=== PATIENT | female | born 2000 | race Two or more races ===

== ENCOUNTER 2025-06-15 09:38 | Inpatient (IN) | payer MEDICAID, OTHER ==
[~2025-06-15] VITALS: Ht 154.9 cm; Wt 77.5 kg
--- NOTE | 2025-06-15 10:33 | ED.PDOC ---
History of Present Illness HPI Comments This is a 24 year old female presenting to the ED with chief complaint of G-Tube problems. Patient reports that she had a g-tube placed in [place] 2 months ago during a medically-induced coma she was put in due to asthma complications. Patient relays that she is now experiencing abdominal pain with associated itchiness to the g-tube site, nausea, and vomiting for the past few days. Patient states she can eat normally at this time and she was advised by [place] doctors to come into the ED if she starts to have complications for possible removal. Patient denies any diarrhea, drainage, bleeding, or fever. Chief Complaint: Tube Replacement Time Seen by MD: :24 Reviewed Notes: Nurses Notes, Medications, Allergies Allergies: Coded Allergies: Azithromycin (Verified Allergy, Unknown, 06/15/25) Information Source: Patient Mode of Arrival: Ambulatory Severity: Mild Timing: Days Duration: Since onset Prehospital treatment: None Past Medical History PAST MEDICAL HISTORY: Asthma Surgical History (Other): G-Tube FIELD SERVICE SPECIALIST History: No Pertinent FIELD SERVICE SPECIALIST History Family History Family History: Reviewed,noncontributory to illness Social History Smoker: Non-Smoker Alcohol: Denies ETOH Use Drugs: Denies Drug Use Lives In: Home Constitutional: denies: chills, diaphoresis, fatigue, fever, malaise, sweats, weakness, others EENTM: denies: blurred vision, double vision, ear bleeding, ear discharge, ear drainage, ear pain, ear ringing, eye pain, eye redness, hearing loss, mouth pain, mouth swelling, nasal discharge, nose bleeding, nose congestion, nose pain, photophobia, tearing, throat pain, throat swelling, voice changes, others Respiratory: denies: cough, hemoptysis, orthopnea, SOB at rest, shortness of breath, SOB with excertion, stridor, wheezing, others Cardiovascular: denies: chest pain, dizzy spells, diaphoresis, Dyspnea on exertion, edema, irregular heart beat, left arm pain, lightheadedness, palpitations, PND, syncope, others Gastrointestinal: reports: abdominal pain, nausea, vomiting; denies: abdomen distended, blood streaked bowels, constipated, diarrhea, dysphagia, difficulty swallowing, hematemesis, melena, poor appetite, poor fluid intake, rectal bleeding, rectal pain, others Genitourinary: denies: abnormal vagina bleeding, burning, dyspareunia, dysuria, flank pain, frequency, hematuria, incontinence, pain, , vagina dischar ge, urgency, others Neurological: denies: dizziness, fainting, headache, left sided numbness, left sided weakness, numbness, paresthesia, pre-existing deficit, right sided numbness, right sided weakness, seizure, speech problems, tingling, tremors, weakness, others Musculoskeletal: denies: back pain, gout, joint pain, joint swelling, muscle pain, muscle stiffness, neck pain, others Integumetry: denies: bruises, change in color, change in hair/nails, dryness, laceration, lesions, lumps, rash, wounds, others Allergic/Immunocompromised: denies: Difficulty Healing, Frequent Infections, Hives, Itching, others Hematologic/Lymphatic: denies: anemia, blood clots, easy bleeding, easy bruising, swollen glands, others Endocrine: denies: excessive hunger, excessive sweating, excessive thirst, excessive urination, flushing, intolerance to cold, intolerance to heat, unexplained weight gain, unexplained weight loss, others Psychiatric: denies: anxiety, bipolar disorder, depression, hopeless, panic disorder, schizophrenia, sleepless, suicidal, others All Other Systems: Reviewed and Negative Physical Exam General Appearance: No Apparent Distress, Normal HEENT: Normal ENT Inspection, Pharynx Normal, TMs Normal Neck: Full Range of Motion, Non-Tender, Normal, Normal Inspection Respiratory: Chest Non-Tender, Lungs Clear, No Accessory Muscle Use, No Respiratory Distress, Normal Breath Sounds Cardiovascular: No Edema, No JVD, No Murmur, No Gallop, Normal Peripheral Pulses, Regular Rate/Rhythm Breast Exam: Deferred Gastrointestinal: No Organomegaly, Non Tender, No Pulsatile Mass, Normal Bowel Sounds, Soft, Other (G-tube in place) Genitalia: Deferred Pelvic: Deferred Rectal: Deferred Extremities: No calf tenderness, Normal capillary refill, Normal inspection, Normal range of motion, Non-tender, No pedal edema Musculoskeletal : Apperance: Normal Neurologic: Alert, call center professional II-XII nml as Tested, No Motor Deficits, Normal Affect, Normal Mood, No Sensory Deficits Cerebellar Function: Normal Reflexes: Normal Skin: Dry, Normal Color, Warm Lymphatic: No Adenopathy Was a procedure done? Was a procedure done?: No Differential Dx Considerations may include: acs, viral syndrome, electrolyte abnormality, g tube malfunction X-Ray, Labs, Meds, VS Vital Signs Date Time Temp Pulse Resp B/P (MAP) Pulse Ox O2 Delivery O2 Flow Rate FiO2 06/15/25 09:39 98.1 106 20 137/89 99 98.1 Lab Test 06/15/25 10:40 Range/Units White Blood Count 7.6 4.4-10.8 10^3/uL Red Blood Count 4.64 4.0-5.20 10^6/uL Hemoglobin 11.3 L 12.2-16.2 g/dL Hematocrit 35.6 L 36.0-46.0 % Mean Corpuscular Volume 76.8 L 80.0-100.0 fL Mean Corpuscular Hemoglobin 24.5 L 28.0-32.0 pg Mean Corpuscular Hemoglobin Concent 31.8 L 32.0-36.0 g/dL Red Cell Distribution Width 15.7 H 11.8-14.3 % Platelet Count 271 140-450 10^3/uL Mean Platelet Volume 10.1 6.9-10.8 fL Neutrophils (%) (Auto) 37.0-80.0 % Lymphocytes (%) (Auto) 10.0-50.0 % Monocytes (%) (Auto) 0.0-12.0 % Eosinophils (%) (Auto) 0.0-7.0 % Basophils (%) (Auto) 0.0-2.0 % Neutrophils # (Auto) 1.6-8.6 10 ^3/uL Lymphocytes # (Auto) 0.4-5.4 10 ^3/uL Monocytes # (Auto) 0-1.3 10 ^3/uL Differential Total Cells Counted 100.0 100 Neutrophils % (Manual) 52 37.0-80.0 Band Neutrophils % (Manual) 1 Lymphocytes % (Manual) 23 10.0-50.0 Monocytes % (Manual) 5 0-12 Eosinophils % (Manual) 19 H 0-7 Basophils % (Manual) 0 0.0-2.0 Metamyelocytes % (manual) 0 Myelocytes % (Manual) 0 Promyelocytes % (Manual) 0 Blast Cells % (Manual) 0 Reactive Lymphocytes 0 Platelet Estimate Adequate Microcytosis Slight Sodium Level 142 136-145 mmol/L Potassium Level 3.8 3.5-5.1 mmol/L Chloride Level 106 98-107 mmol/L Carbon Dioxide Level 26 20-31 mmol/L Anion Gap 10 5-15 Blood Urea Nitrogen 6 L 9-23 mg/dL Creatinine 0.51 L 0.550-1.02 mg/dL Glomerular Filtration Rate Calc 135 >90 mL/min BUN/Creatinine Ratio 11.8 10.0-20.0 Serum Glucose 102 74-106 mg/dL Calcium Level 9.9 8.7-10.4 mg/dL [place] [id number] Ph: [phone] DIAGNOSTIC IMAGING Diagnostic Imaging Report : [id number] Signed PATIENT: LEESA QUIGLEYACCT: [id number] UNIT: [id number] : 2000 LOC: ER ROOM / BED: / AGE / SEX: 24 / F ADM STATUS: REG ER SERVICE 1024 ORDERING PHYSICIAN: KIMI BENTON MD PROCEDURE(s): KUB - KUB ABDOMEN SINGLE VIEW REASON: abdominal pain ORDER NUMBER(s): [id number], ACCESSION NUMBER(s): [id number] Date: 06/15/2025 10:25 AM Examination: XY KUB ABDOMEN SINGLE VIEW History: abdominal pain Comparison: None TECHNIQUE: Frontal views of the abdomen was obtained. FINDINGS: Bowel gas pattern is unremarkable. Moderate stool burden. The lung bases are unremarkable. No acute osseous abnormality identified. IMPRESSION: Nonobstructive bowel gas pattern. Moderate stool burden. ATED BY: MISBAH PETERS MD DICTATED DATE/TIME: 06/15/25 1056 SIGNED BY: MISBAH PETERS MD SIGNED DATE/TIME: 06/15/25 105 CC: Images Reviewed?: Images reviewed and evaluated by me Time of 1ST Reevaluation: 11:24 Reevaluation 1ST: Unchanged Patient Education/Counseling: Diagnosis, Treatment Family Education/Counseling: No Family Present SEPSIS Sepsis Screen Date sepsis recognized/suspect: Jun 15, 2025 Time Sepsis recognized/suspect: 0942 Recent Procedure: No On Antibiotic Therapy: No Respiratory Rate >20: No Heart Rate >90: Yes Temp<36 C (96.8 F) or >38.3 C: No SBP <90 or MAP <65 mmHG: No New Acute Mental Status Change: No Is the patient on CPAP, BIPAP,: No Physician Orders Kub Abdomen Single View (06/15/25 10:24) Hydromorphone Injection (Dilaudid Inject (06/15/25 15:30) Ondansetron Hcl (Zofran) (06/15/25 15:30) Sodium Chloride 0.9% (06/15/25 15:30) Vital Signs Date Time Temp Pulse Resp B/P (MAP) Pulse Ox O2 Delivery O2 Flow Rate FiO2 06/15/25 09:39 98.1 106 20 137/89 99 98.1 Laboratory Tests Test 06/15/25 10:40 White Blood Count 7.6 10^3/uL (4.4-10.8) Departure 1 Departure Time of Disposition: 15:52 (Patient with severe abdominal pain and requesting G-tube removed. Patient is now tolerating p.o.. We will admit patient for further workup and expert consultation) Impression: Primary Impression: Pain around PEG tube site Disposition: ADMITTED INPATIENT Admit to: Med Surg Condition: Serious Critical Care Note Critical Care Time?: No Stability Stability form required: No Heart Score Heart Score: Heart Score Response (Comments) Value History N/A 0 EKG N/A 0 Age N/A 0 Risk Factors N/A 0 Troponin N/A 0 Total 0 I personally scribed for KIMI BENTON MD ([email or web address]) on 06/15/25 at 10:33. Electronically submitted by Fly Riddle ([email or web address]). I personally scribed for KIMI BENTON MD ([email or web address]) on 06/15/25 at 11:15. Electronically submitted by Fly Riddle ([email or web address]). KIMI BENTON MD Jun 15, 2025 10:33
--- NOTE | 2025-06-15 10:59 | DVH ---
Date: 06/15/2025 10:25 AM Examination: XY KUB ABDOMEN SINGLE VIEW History: abdominal pain Comparison: None TECHNIQUE: Frontal views of the abdomen was obtained. FINDINGS: Bowel gas pattern is unremarkable. Moderate stool burden. The lung bases are unremarkable. No acute osseous abnormality identified. IMPRESSION: Nonobstructive bowel gas pattern. Moderate stool burden.
[2025-06-15 11:34] LABS: Chloride 106 mmol/L (98-107); Potassium 3.8 mmol/L (3.5-5.1); Sodium 142 mmol/L (136-145)
[2025-06-15 11:35] LABS: Anion Gap 10 (5-15); Calcium 9.9 mg/dL (8.7-10.4); Carbon Dioxide 26 mmol/L (20-31)
[2025-06-15 11:36] LABS: Hematocrit 35.6 % (36.0-46.0); Hemoglobin 11.3 g/dL (12.2-16.2); Mean Corpuscular Hemoglobin 24.5 pg (28.0-32.0); Mean Corpuscular Volume 76.8 fL (80.0-100.0)
[2025-06-15 11:41] LABS: BUN/Creatinine Ratio 11.8 (10.0-20.0); Glucose 102 mg/dL (74-106)
[2025-06-15 11:48] LABS: Blood Urea Nitrogen 6 mg/dL (9-23)
[2025-06-15 13:07] LABS: Total Cells Counted 100.0 (100)
[2025-06-15] MEDS: SODIUM CHLORIDE 0.9% 1,000 ML IV ONE (18:02)
[2025-06-15] MEDS: ONDANSETRON HCL 4 MG/2 ML VIAL IV ONE (18:04)
[2025-06-15] MEDS: HYDROmorphone HCL 2 MG/ML VL/or syr IV ONE (18:08)
--- NOTE | 2025-06-15 21:07 | DVHHPRES ---
History of Present Illness Resident Creating Document: CRISTIANE URIAS History of Present Illness Patient is a 24-year-old male with past medical history of asthma, presented to [facility] ED with complaint of severe abdominal pain and requesting G-tube removed. She reports that the G-tube was placed approximately 2 months ago at [place] during a medically-induced coma secondary to asthma complications. Over the past few days, she has been experiencing abdominal pain, itchiness around the G-tube site, nausea, and vomiting. Despite these symptoms, she states she is currently able to eat normally. She was advised by her physicians at [place] to return to the ED if complications arose, as removal of the G-tube may be considered. Patient denies diarrhea, drainage, bleeding, or fever. No other symptoms or modifying factors are present at this time. On evaluation in the ED, patient is afebrile, vitals are stable. Initial significant microcytic anemia, BUN 6, creatinine 0.51, AST 71, and ALT 158. Abdominal X-ray shows nonobstructive bowel gas pattern moderate stool burden. Patient is admitted for further evaluation and management. Pulmonary: Asthma Past Surgical History G-Tube Family History: None Smoke: No ALCOHOL: none Drugs: None Review of Systems Gastrointestinal: Nausea, Vomiting, Abdominal Pain, Constipation Allergies: Coded Allergies: Azithromycin (Verified Allergy, Unknown, 06/15/25) Exam Vital Signs Vital Signs Date Time Temp Pulse Resp B/P (MAP) Pulse Ox O2 Delivery O2 Flow Rate FiO2 06/15/25 18:08 98 18 128/91 06/15/25 09:39 98.1 99 98.1 Exam General Appearance: Cooperative. Well developed. Well nourished. NAD Head Exam: Normal inspection Neck Exam: Normal inspection. Non-tender. Normal alignment Pulmonary/Respiratory: Chest non-tender. Clear bilateral breath sounds, no crackles, no wheezing. Cardiovascular/Chest: Regular rate and rhythm. No murmurs. No JVD. Peripheral Pulses: 2+ Radial (R). 2+ Radial (L). 2+ Pedal (R). 2+ Pedal (L) Abdominal Exam: Normal bowel sounds. Soft. normal abdomen, no visible veins, Nontender. No hepatospenomegaly. No masses Gastrointestinal: No Organomegaly, diffuse abdominal tenderness, No Pulsatile Mass, Normal Bowel Sounds, Soft, Other (G-tube in place) Ankle Exam: Negative ankle edema Lower extremities: Negative lower extremity edema Neuro/Mental Status: A&O x4. Coherent. Thoughts/Psych: Normal thought pattern. Appropriate mood and affect. Good judgement and insight Skin Exam: Normal inspection. Normal color. Warm. Dry Labs/Xrays Labs Test 06/15/25 10:40 Range/Units White Blood Count 7.6 4.4-10.8 10^3/uL Red Blood Count 4.64 4.0-5.20 10^6/uL Hemoglobin 11.3 L 12.2-16.2 g/dL Hematocrit 35.6 L 36.0-46.0 % Mean Corpuscular Volume 76.8 L 80.0-100.0 fL Mean Corpuscular Hemoglobin 24.5 L 28.0-32.0 pg Mean Corpuscular Hemoglobin Concent 31.8 L 32.0-36.0 g/dL Red Cell Distribution Width 15.7 H 11.8-14.3 % Platelet Count 271 140-450 10^3/uL Mean Platelet Volume 10.1 6.9-10.8 fL Neutrophils (%) (Auto) 37.0-80.0 % Lymphocytes (%) (Auto) 10.0-50.0 % Monocytes (%) (Auto) 0.0-12.0 % Eosinophils (%) (Auto) 0.0-7.0 % Basophils (%) (Auto) 0.0-2.0 % Neutrophils # (Auto) 1.6-8.6 10 ^3/uL Lymphocytes # (Auto) 0.4-5.4 10 ^3/uL Monocytes # (Auto) 0-1.3 10 ^3/uL Differential Total Cells Counted 100.0 100 Neutrophils % (Manual) 52 37.0-80.0 Band Neutrophils % (Manual) 1 Lymphocytes % (Manual) 23 10.0-50.0 Monocytes % (Manual) 5 0-12 Eosinophils % (Manual) 19 H 0-7 Basophils % (Manual) 0 0.0-2.0 Metamyelocytes % (manual) 0 Myelocytes % (Manual) 0 Promyelocytes % (Manual) 0 Blast Cells % (Manual) 0 Reactive Lymphocytes 0 Platelet Estimate Adequate Microcytosis Slight Sodium Level 142 136-145 mmol/L Potassium Level 3.8 3.5-5.1 mmol/L Chloride Level 106 98-107 mmol/L Carbon Dioxide Level 26 20-31 mmol/L Anion Gap 10 5-15 Blood Urea Nitrogen 6 L 9-23 mg/dL Creatinine 0.51 L 0.550-1.02 mg/dL Glomerular Filtration Rate Calc 135 >90 mL/min BUN/Creatinine Ratio 11.8 10.0-20.0 Serum Glucose 102 74-106 mg/dL Calcium Level 9.9 8.7-10.4 mg/dL SEPSIS Sepsis Screen Date sepsis recognized/suspect: Jun 15, 2025 Time Sepsis recognized/suspect: 941 Recent Procedure: No On Antibiotic Therapy: No Respiratory Rate >20: No Heart Rate >90: Yes Temp<36 C (96.8 F) or >38.3 C: No SBP <90 or MAP <65 mmHG: No New Acute Mental Status Change: No Is the patient on CPAP, BIPAP,: No Physician Orders *[facility] (06/15/25 15:53) Vital Signs Date Time Temp Pulse Resp B/P (MAP) Pulse Ox O2 Delivery O2 Flow Rate FiO2 06/15/25 18:08 98 18 128/91 Laboratory Tests Test 06/15/25 10:40 White Blood Count 7.6 10^3/uL (4.4-10.8) Medications Medications Dose Ordered Sig/Yariel Route Start Time Stop Time Status Last Admin Dose Admin Hydromorphone HCl 1 mg ONCE ONCE IV 06/15/25 15:30 06/15/25 15:52 DC 06/15/25 18:08 1 MG Ondansetron HCl 4 mg ONCE ONCE IV 06/15/25 15:30 06/15/25 15:52 DC 06/15/25 18:04 4 MG Sodium Chloride 1,000 ml @ 1,000 mls/hr Q1H ONCE IV 06/15/25 15:30 06/15/25 16:29 DC 06/15/25 18:02 1,000 MLS/HR Assessment/Plan Assessment/Plan Intractable abdominal pain likely due to PEG tube Intractable nausea and vomiting due to above Transaminitis due to above KUB: Nonobstructive bowel gas pattern. Moderate stool burden. Abdomen/Pelvis CT: No acute abdominopelvic abnormality. 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 Zhao Plan discussed with: Patient Date of Service: Jun 16, 2025 Billing Provider: LEEANN ZHAO MD Common Visit Codes: 24129-[id number] INP/OBS CARE (HIGH) Secondary Visit Codes: 56291-[id number] CARE PLAN 30 MINUTES CRISTIANE URIAS RESIDENT Jun 15, 2025 21:07 LEEANN ZHAO MD Jun 16, 2025 08:45
[2025-06-15] MEDS: IOHEXOL 300 MG/ML 100ML BOTTLE IJ ONE (22:01)
[2025-06-15 22:12] LABS: Albumin 4.7 g/dL (3.2-4.8); Alkaline Phosphatase 114 U/L (46-116); Total Protein 7.9 g/dL (5.7-8.2)
[2025-06-15 22:13] LABS: Alanine Aminotransferase 158 U/L (7-40); Bilirubin, Direct < 0.1 mg/dL (<0.3); Bilirubin, Total 0.3 mg/dL (0.2-1.0)
[2025-06-15 22:16] LABS: Thyroid Stimulating Hormone 2.93 uIU/mL (0.55-4.78)
[2025-06-15 22:21] LABS: Beta HCG, Quantitative < 0.0 mIU/mL (1.5-4.2)
--- NOTE | 2025-06-15 22:32 | DVH ---
Exam: CT CT AB PEL WITH IV CON ONLY History: abdominal pain Comparison Study: None TECHNIQUE: A digital supervisor riveting image was obtained. During the uneventful, intravenous administration of c ontrast material, multislice data acquisition was obtained through the abdomen and pelvis. The data s et was subsequently reconstructed into multiplanar reformats. RADIATION DOSE: CTDI vol 12.54 mGy. DLP 794.29 mGy.cm Findings: Lungs: The lung bases are clear. Liver: Too small to characterize right hepatic lesion. Spleen: Unremarkable. Pancreas: Unremarkable. Gallbladder: Unremarkable. Adrenals: Unremarkable Kidneys: Unremarkable. Pelvic Viscera: Unremarkable. Vasculature: Unremarkable. Retroperitoneum: Unremarkable. Bowel: No bowel obstruction. The appendix is normal. A PEG tube is noted. Musculoskeletal: Unremarkable. Soft tissues: Unremarkable Impression: 1. No acute abdominopelvic abnormality.
[2025-06-15] MEDS: BISACODYL 5 MG EC TAB PO ONE (23:37)
[2025-06-15] MEDS: DOCUSATE SOD 100 MG CAP PO PRN (23:37)
[2025-06-15] MEDS: LACTULOSE 20Gm/30ML SOLN PO ONE (23:37)
[2025-06-15] MEDS: ONDANSETRON HCL 4 MG/2 ML VIAL IV PRN (23:38)
[2025-06-15] MEDS: SODIUM CHLOR 0.9% PF (SALINE LOCK) 10ML VIAL/SYR IV SCH (23:39)
[2025-06-15] MEDS: HYDROmorphone HCL 2 MG/ML VL/or syr IV PRN (23:39)
[2025-06-15 23:57] VITALS: BP 130/83; PULSE 97; RESP 16; TEMP 98.2; O2SAT 95
[2025-06-16] VITALS (15 sets, daily range): BP systolic 112–138; BP diastolic 56–79; PULSE 72–102; RESP 16–20; TEMP 97.6–98.3; O2SAT 95–100
[2025-06-16 01:41] LABS: Urine Protein, UAD 1+ (Negative)
[2025-06-16 02:08] LABS: Opiate Scree,Urine Neg (NEGATIVE)
[2025-06-16 02:16] LABS: Amphetamine Screen, Urine Neg (NEGATIVE); Barbiturate Scree,Urine Neg (NEGATIVE); Benzodiazephine Screen, Urine Neg (NEGATIVE); Cannabinoid Screen, Urine Neg (NEGATIVE); Cocaine Screen, Urine Neg (NEGATIVE); Phencyclidine Screen, Urine Neg (NEGATIVE)
[2025-06-16 04:33] LABS: Hematocrit 34.6 % (36.0-46.0); Hemoglobin 11.0 g/dL (12.2-16.2); Mean Corpuscular Hemoglobin 25.0 pg (28.0-32.0); Mean Corpuscular Volume 78.7 fL (80.0-100.0); Nucleated Red Blood Cells % 0.0 %
[2025-06-16 04:58] LABS: Albumin 4.5 g/dL (3.2-4.8); Alkaline Phosphatase 116 U/L (46-116); Anion Gap 12 (5-15); BUN/Creatinine Ratio 10.7 (10.0-20.0); Calcium 9.6 mg/dL (8.7-10.4); Carbon Dioxide 23 mmol/L (20-31); Chloride 104 mmol/L (98-107); Potassium 3.9 mmol/L (3.5-5.1); Sodium 139 mmol/L (136-145); Total Protein 7.6 g/dL (5.7-8.2)
[2025-06-16 04:59] LABS: Alanine Aminotransferase 135 U/L (7-40); Bilirubin, Total 0.4 mg/dL (0.2-1.0); Blood Urea Nitrogen 6 mg/dL (9-23); Glucose 127 mg/dL (74-106)
[2025-06-16] MEDS ORDERED: MONT-8 PO (05:15)
[2025-06-16] MEDS ORDERED: LORA-622 PO (05:15)
[2025-06-16] MEDS ORDERED: FLUT500M2 INH (05:15)
[2025-06-16] MEDS ORDERED: DUPI1INJ SC (05:15)
[2025-06-16] MEDS: ACETAMINOPHEN 325 MG TAB PO PRN (09:35)
[2025-06-16 10:39] LABS: COVID19 ANTIGEN SOFIA FIA NEGATIVE (NEGATIVE)
--- NOTE | 2025-06-16 11:16 | DVH ---
INDICATION: transaminitis TECHNIQUE: Multiple real-time sonographic images were obtained of the right upper quadrant. COMPARISON: None FINDINGS: The liver demonstrates increased echotexture without focal mass lesions. The liver measure s 14.9 cm. There is no intrahepatic or extrahepatic ductal dilatation. The common duct measures 0.3 cm. The gallbladder is without evidence of stone or sludge. The gallbladder wall measures 0.1 cm and is w ithin normal limits. The right kidney measures 11.3 cm. The right kidney is normal in contour, size, and shape. The echoge nicity is normal. There is no hydronephrosis. The pancreas is not well visualized due to overlying bowel gas. IMPRESSION: No sonographic evidence of gallstones or acute cholecystitis. Hepatic steatosis.
--- NOTE | 2025-06-16 12:08 | DVHPNRES ---
Progress Note Date Seen: Jun 16, 2025 Resident Creating Document: DEANA WADE RESIDENT Medical Necessity Reason Pt with a Central, PICC or Fol: Yes (G tube) Subjective Review of Systems Brief history on admission: This is a 24-year-old male with past medical history of asthma, presented to [facility] ED with complaint of severe abdominal pain and requesting G-tube removed. Pain is described as stabbing, 8/10, aggravated with eating food, no relieving factors, associated with nausea. She reports that the G-tube was placed approximately 2 months ago at [place] during a medically-induced coma for intubation due to asthma complications. Over the past few days, she has been experiencing worsening of abdominal pain, itchiness around the G-tube site, nausea, and vomiting. She states she is currently able to eat orally. Patient denies diarrhea, drainage, bleeding, or fever. No other symptoms or modifying factors are present at this time. Initial labs show microcytic anemia, BUN 6, creatinine 0.51, AST 71, and ALT 158. Abdominal X-ray shows nonobstructive bowel gas pattern moderate stool burden. CT scan shows no acute abnormality. PMHx: Asthma PSHx: G-tube Social history: Denies smoking, alcohol use, quit marijuana 1 year ago. Lives in a mobile home with family, full code, next to kin is mother. Home medication: Adavir, loratadine, Dupilumab Allergic history: Azithromycin ROS: Constitutional: Denies weight loss, fever and chills. HEENT: Denies changes in vision and hearing. Respiratory: Denies shortness of breath and cough Cardiovascular: Denies chest discomfort or palpitations GI: Abdominal pain, nausea, G-tube in place : Denies dysuria and urinary frequency. Musculoskeletal: Denies myalgias and joint pain Skin: Denies rash and pruritus. Neurological: Denies dizziness, headache, vision or hearing problems 06/16/2025: Patient was examined at bedside today. No new complaints. GI consulted. Objective vital signs Vital Sign Date Time Temp Pulse Resp B/P (MAP) Pulse Ox O2 Delivery O2 Flow Rate FiO2 06/16/25 09:02 98.0 90 18 118/68 (85) 98 98.0 Total Intake and Output 06/15/25 06/15/25 06/16/25 15:00 23:00 07:00 Intake Total 1000 ml Balance 1000 ml medications Current Medications Medications Dose Ordered Sig/Yariel Route Start Time Stop Time Status Last Admin Dose Admin Sodium Chloride 10 ml Q8HR IV 06/15/25 22:00 06/16/25 06:00 10 ML Ondansetron HCl 4 mg Q4HP PRN IV 06/15/25 21:15 06/16/25 09:34 4 MG Docusate Sodium 100 mg BIDPRN PRN PO 06/15/25 21:15 06/15/25 23:37 100 MG Acetaminophen 650 mg Q6HP PRN PO 06/15/25 21:15 06/16/25 09:35 650 MG Hydromorphone HCl 0.25 mg Q6HPRN PRN IV 06/15/25 21:15 06/15/25 23:39 0.25 MG Ipratropium [place] 0.5 mg Q6HPRN PRN NEB 06/15/25 21:15 Albuterol 2.5 mg Q6HR NEB 06/16/25 00:00 Examination General: Patient alert and oriented in person, place and time. Patient following commands. HEENT: Normocephalic, atraumatic, moist mucous membranes Respiratory/pulmonary: Clear lungs bilaterally, vesicular murmurs present in almost all lung ford, no associated crackles or wheezes. Cardiovascular: Normal heart sounds S1 and S2 with no associated murmurs Abdomen: G-tube in place, no signs of local inflammation seen Extremities: There is no peripheral edema present at the lower extremities. Peripheral Pulses: 3+ Radial (R). 3+ Radial (L). 3+ Dorsalis pedis (R). 3+ Dorsalis pedis(L) Skin: No rashes or pruritus, there is no sacral edema present at this time. Neurological: Intact cranial nerves with no focal neurologic deficits laboratory and microbiology Laboratory Tests 06/16/25 03:36 Test 06/16/25 03:36 Range/Units Serum Glucose 127 H 74-106 mg/dL Problem List/Assessment/Plan Problem List/Assessment/Plan Intractable abdominal pain likely due to PEG tube KUB: Nonobstructive bowel gas pattern. Moderate stool burden. Abdomen/Pelvis CT: No acute abdominopelvic abnormality. 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 Full code DISPOSITION: Med/surge This medical document was created using an electronic medical record system with [employer] computerized dictation system. Although this document has been carefully reviewed, there may still be some phonetic and typographical errors. These areas are purely typographical due to imperfections of the software programs, and do not reflect any compromise in the patient's medical care. Patient's status and plan discussed with the patient. Case discussed with Dr. Reynodls Plan discussed with: Patient, Other (Nurses) My Orders My Orders Orders - DEANA WADE Procedure Category Date Status Time Acute Hepatitis Panel LAB 06/16/25 In Process 10:03 LIVER US 06/16/25 Resulted 10:03 Date of Service: Jun 16, 2025 Billing Provider: DEANA WADE Common Visit Codes: [id number] INP/OBS CARE(HIGH) DEANA WADE Jun 16, 2025 12:08
[2025-06-16] MEDS: ACETAMINOPHEN 325 MG TAB PO ONE (13:17)
[2025-06-16] MEDS: PANTOPRAZOLE 40 MG TAB PO ONE (13:18)
[2025-06-16] MEDS: OSELTAMIVIR 75 MG CAP PO ONE (14:30)
[2025-06-16] MEDS: PANTOPRAZOLE 40 MG/10 ML VIAL INJ IV ONE (14:30)
[2025-06-16] MEDS: SODIUM CHLORIDE 0.9% 1,000 ML IV ONE (14:36)
[2025-06-16] MEDS: ALBUTEROL SULF 2.5 MG/0.5ML(0.5%) NEB SOLN NEB SCH (15:46)
[2025-06-16] MEDS: diphenhydrAMINE HCL 50 MG/1 ML VL IV PRN (16:11)
--- NOTE | 2025-06-16 16:41 | DVHCONRES ---
Date Seen: Jun 16, 2025 Resident Creating Document: JHAJJLILIANA RESIDENT Referring Physician You Reason for Consultation PEG tube removal History of Present Illness Patient is a 24-year-old male with past medical history of asthma, presented to [facility] ED with abdominal pain around the G tube and requesting G-tube removed. Patient underwent G tube placement after she was in an ICU for status asthmaticus and was apparently in coma for a long time. Patient reports pain around the the G tube site. Over the past few days, she has been experiencing worsening of abdominal pain, itchiness around the G-tube site, and has been reporting nausea. She states she is currently able to eat orally. Patient denies diarrhea, drainage, bleeding, or fever. No other symptoms or modifying factors are present at this time. Abdominal X-ray shows nonobstructive bowel gas pattern moderate stool burden. CT scan shows no acute abnormality. Past Medical History asthma Past Surgical History None Family History: Asthma G8 FATHER Diabetes mellitus G8 MOTHER G8 FATHER Family History none Social History denies smoking, alcohol, drug use Allergies: Coded Allergies: Fish Oil (Verified Allergy, Mild, 06/16/25) Azithromycin (Verified Allergy, Unknown, 06/15/25) Home Meds Reported Medications Dupilumab (Dupixent) 300 Mg/2 Ml Inj, 300 MG SC, INJ 06/16/25 Loratadine (Claritin) 10 Mg Tab, 1 TAB PO, #30 TAB 5 Refills 06/16/25 Montelukast Sodium (MONTELUKAST SODIUM) 10 Mg Tab, 1 TAB PO, #30 TAB 5 Refills 06/16/25 Fluticasone-Salmeterol (Advair Diskus 500/50) 1 Puff Ih, 1 PUFF INH BID, #1 INHALER 5 Refills 06/16/25 Current Medications Current Medications Medications (Trade) Dose Ordered Sig/Yariel Route PRN Reason Start Time Stop Time Status Last Admin Sodium Chloride (Saline Lock Ns) 10 ml Q8HR IV 06/15/25 22:00 06/16/25 14:29 Ondansetron HCl (Zofran) 4 mg Q4HP PRN IV NAUSEA / VOMITING 06/15/25 21:15 06/16/25 09:34 Docusate Sodium (Colace Capsule) 100 mg BIDPRN PRN PO FOR CONSTIPATION 06/15/25 21:15 06/15/25 23:37 Acetaminophen (Tylenol Tablet) 650 mg Q6HP PRN PO PAIN SCALE 1-3 OR TEMP>100.4 06/15/25 21:15 06/16/25 09:35 Hydromorphone HCl (Dilaudid Injection) 0.25 mg Q6HPRN PRN IV SEVERE PAIN (7-10 PAIN SCALE) 06/15/25 21:15 06/15/25 23:39 Ipratropium [place] (Atrovent Medneb) 0.5 mg Q6HPRN PRN NEB SHORTNESS OF BREATH 06/15/25 21:15 Albuterol (Ventolin Medneb) 2.5 mg Q6HR NEB 06/16/25 00:00 06/16/25 15:46 Oseltamivir Phosphate (Tamiflu 75MG Capsule) 75 mg Q12HR PO 06/16/25 22:00 06/21/25 21:59 Pantoprazole Sodium (Protonix Tablet) 40 mg DAILY@0600 PO 06/17/25 06:00 Diphenhydramine HCl (Benadryl Injection) 25 mg Q4HP PRN IV FOR ITCHING 06/16/25 15:45 06/16/25 16:11 Review of Systems patient seen and examined at the bedside reports mild pain and itchiness around the site of G tube no overlying erythema or induration was seen Vital Signs Vital Signs Date Time Temp Pulse Resp B/P (MAP) Pulse Ox O2 Delivery O2 Flow Rate FiO2 06/16/25 15:40 100 16 100 06/16/25 13:00 98.0 138/75 (96) 98.0 06/16/25 10:00 Room Air 0.0 06/16/25 10:00 21 Physical Exam Gen - no pallor, no scleral icterus Skin - Patients skin is warm and dry. HEENT - normocephalic, atraumatic, dry mucous membranes. Neck - supple, no lymphadenopathy Pulmonary - B/L equal air entry with vesicular breath sounds cardiovascular - regular S1,S2 heard GI - soft nontender abdomen. G tube in the LUQ Bowel sounds normoactive. Neurological - Patient is alert and oriented x4. No motor or sensory weakness Labs/Diagnostic Data Labs Test 06/16/25 09:32 06/16/25 03:36 06/16/25 01:00 06/15/25 10:40 Range/Units Influenza Type A Antigen Negative Negative Influenza Type B Antigen Positive Negative SARS-CoV-2 Antigen (Rapid) Negative NEGATIVE White Blood Count 11.6 #H 4.4-10.8 10^3/uL Red Blood Count 4.39 4.0-5.20 10^6/uL Hemoglobin 11.0 L 12.2-16.2 g/dL Hematocrit 34.6 L 36.0-46.0 % Mean Corpuscular Volume 78.7 L 80.0-100.0 fL Mean Corpuscular Hemoglobin 25.0 L 28.0-32.0 pg Mean Corpuscular Hemoglobin Concent 31.7 L 32.0-36.0 g/dL Red Cell Distribution Width 15.9 H 11.8-14.3 % Platelet Count 256 140-450 10^3/uL Mean Platelet Volume 10.5 6.9-10.8 fL Neutrophils (%) (Auto) 76.4 37.0-80.0 % Lymphocytes (%) (Auto) 9.6 L 10.0-50.0 % Monocytes (%) (Auto) 4.8 0.0-12.0 % Eosinophils (%) (Auto) 8.2 H 0.0-7.0 % Basophils (%) (Auto) 1.0 0.0-2.0 % Neutrophils # (Auto) 8.9 H 1.6-8.6 10 ^3/uL Lymphocytes # (Auto) 1.1 0.4-5.4 10 ^3/uL Monocytes # (Auto) 0.6 0-1.3 10 ^3/uL Eosinophils # (Auto) 1.0 H 0-0.8 10 ^3/uL Basophils # (Auto) 0.1 0-0.2 10 ^3/uL Nucleated Red Blood Cells 0.0 % Sodium Level 139 136-145 mmol/L Potassium Level 3.9 3.5-5.1 mmol/L Chloride Level 104 98-107 mmol/L Carbon Dioxide Level 23 20-31 mmol/L Anion Gap 12 5-15 Blood Urea Nitrogen 6 L 9-23 mg/dL Creatinine 0.56 0.550-1.02 mg/dL Glomerular Filtration Rate Calc 132 >90 mL/min BUN/Creatinine Ratio 10.7 10.0-20.0 Serum Glucose 127 H 74-106 mg/dL Calcium Level 9.6 8.7-10.4 mg/dL Total Bilirubin 0.4 0.2-1.0 mg/dL Aspartate Amino Transferase (AST) 56 H 13-40 U/L Alanine Aminotransferase (ALT) 135 H 7-40 U/L Alkaline Phosphatase 116 46-116 U/L Total Protein 7.6 5.7-8.2 g/dL Albumin 4.5 3.2-4.8 g/dL Urine Color Yellow Yellow Urine Clarity Clear Clear Urine pH 6.5 5.0-9.0 Urine Specific [place] > 1.050 H 1.001-1.035 Urine Protein 1+ H Negative Urine Ketones Negative Negative Urine Blood 1+ H Negative /uL Urine Nitrite Negative Negative Urine Bilirubin Negative Negative Urine Urobilinogen Normal Negative mg/dL Urine Leukocyte Esterase Negative Negative /uL Urine RBC 4 0 - 4 /hpf Urine Microscopic WBC 4 0-5 /HPF Urine Squamous Epithelial Cells Few <5 /hpf Urine Bacteria None seen None Seen /hpf Urine Glucose Normal Normal mg/dL Urine Opiates Screen Neg NEGATIVE Urine Fentanyl Screen Neg NEGATIVE Urine Barbiturates Screen Neg NEGATIVE Urine Phencyclidine Screen Neg NEGATIVE Urine Amphetamines Screen Neg NEGATIVE Urine Benzodiazepines Screen Neg NEGATIVE Urine Cocaine Screen Neg NEGATIVE Urine Cannabinoids Screen Neg NEGATIVE Differential Total Cells Counted 100.0 100 Neutrophils % (Manual) 52 37.0-80.0 Band Neutrophils % (Manual) 1 Lymphocytes % (Manual) 23 10.0-50.0 Monocytes % (Manual) 5 0-12 Eosinophils % (Manual) 19 H 0-7 Basophils % (Manual) 0 0.0-2.0 Metamyelocytes % (manual) 0 Myelocytes % (Manual) 0 Promyelocytes % (Manual) 0 Blast Cells % (Manual) 0 Reactive Lymphocytes 0 Platelet Estimate Adequate Microcytosis Slight Direct Bilirubin < 0.1 <0.3 mg/dL Thyroid Stimulating Hormone (TSH) 2.93 0.55-4.78 uIU/mL Beta HCG, Quantitative < 0.0 L 1.5-4.2 mIU/mL Assessment Assessment Abdominal pain s/p PEG tube Hepatic steatosis Mild transaminitis Plan - IV fluids - Full liquid diet - Scheduled for PEG tube removal tomorrow - monitor liver functions - NPO after midnight Plan discussed with Dr. Koenig Plan discussed with: Patient, Other (SAPNA Soares) LILIANA GARCIA RESIDENT Jun 16, 2025 16:41
[2025-06-16] MEDS ORDERED: POLYETHYLENE GLYCOL 17 GM PWDR PO PRN (16:45)
[2025-06-16] MEDS: POLYETHYLENE GLYCOL 17 GM PWDR PO ONE (16:45)
[2025-06-16] MEDS: IPRATROPIUM BROM 0.5 MG/2.5ML INH SOL NEB PRN (18:02)
[2025-06-16] MEDS: SENNA 8.6 MG TAB PO SCH (22:12)
[2025-06-16] MEDS: OSELTAMIVIR 75 MG CAP PO SCH (22:12)
[2025-06-17] VITALS (15 sets, daily range): BP systolic 113–125; BP diastolic 71–89; PULSE 83–103; RESP 13–22; TEMP 98–98.9; O2SAT 94–100
[2025-06-17 05:25] LABS: Hematocrit 31.4 % (36.0-46.0); Hemoglobin 10.2 g/dL (12.2-16.2); Mean Corpuscular Hemoglobin 24.9 pg (28.0-32.0); Mean Corpuscular Volume 76.7 fL (80.0-100.0)
[2025-06-17 05:38] LABS: Anion Gap 11 (5-15); Calcium 9.1 mg/dL (8.7-10.4); Carbon Dioxide 27 mmol/L (20-31); Chloride 104 mmol/L (98-107); Sodium 142 mmol/L (136-145)
[2025-06-17 05:39] LABS: Potassium 3.3 mmol/L (3.5-5.1)
[2025-06-17 05:44] LABS: BUN/Creatinine Ratio 8.6 (10.0-20.0); Blood Urea Nitrogen < 5 mg/dL (9-23); Glucose 82 mg/dL (74-106)
[2025-06-17] MEDS: PANTOPRAZOLE 40 MG TAB PO SCH (05:56)
[2025-06-17 06:56] LABS: Total Cells Counted 100.0 (100)
--- NOTE | 2025-06-17 08:53 | DVH ---
INDICATION: pt. scheduled for surgery TECHNIQUE: Frontal view of the chest. COMPARISON: None FINDINGS: . The heart and mediastinal contours are grossly unremarkable. There is no evidence of pleural disea se. The lungs are clear. The bony structures of the chest are intact without fracture. IMPRESSION: 1. No evidence of acute disease.
[2025-06-17] MEDS: POTASSIUM CHL 20MEQ/100ML 100 ML IV ONE (09:39)
[2025-06-17 12:06] LABS: Hepatitis B Surface Antigen Negative (Negative)
[2025-06-17 12:07] LABS: Hepatitis C Antibody Negative (Negative)
[2025-06-17 13:16] LABS: Iron 33.0 ug/dL (50-170); Total Iron Binding Capacity 369.0 ug/dL (250-425)
--- NOTE | 2025-06-17 13:23 | DVHPNRES ---
Progress Note Date Seen: Jun 17, 2025 Resident Creating Document: DEANA WADE RESIDENT Medical Necessity Reason Pt with a Central, PICC or Fol: Yes (G tube) Subjective Review of Systems Brief history on admission: This is a 24-year-old male with past medical history of asthma, presented to [facility] ED with complaint of severe abdominal pain and requesting G-tube removed. Pain is described as stabbing, 8/10, aggravated with eating food, no relieving factors, associated with nausea. She reports that the G-tube was placed approximately 2 months ago at [place] during a medically-induced coma for intubation due to asthma complications. Over the past few days, she has been experiencing worsening of abdominal pain, itchiness around the G-tube site, nausea, and vomiting. She states she is currently able to eat orally. Patient denies diarrhea, drainage, bleeding, or fever. No other symptoms or modifying factors are present at this time. Initial labs show microcytic anemia, BUN 6, creatinine 0.51, AST 71, and ALT 158. Abdominal X-ray shows nonobstructive bowel gas pattern moderate stool burden. CT scan shows no acute abnormality. PMHx: Asthma PSHx: G-tube Social history: Denies smoking, alcohol use, quit marijuana 1 year ago. Lives in a mobile home with family, full code, next to kin is mother. Home medication: Adavir, loratadine, Dupilumab Allergic history: Azithromycin ROS: Constitutional: Denies weight loss, fever and chills. HEENT: Denies changes in vision and hearing. Respiratory: Denies shortness of breath and cough Cardiovascular: Denies chest discomfort or palpitations GI: Abdominal pain, nausea, G-tube in place : Denies dysuria and urinary frequency. Musculoskeletal: Denies myalgias and joint pain Skin: Denies rash and pruritus. Neurological: Denies dizziness, headache, vision or hearing problems 06/16/2025: No new complaints. GI consulted. 06/17/2025: Patient was examined at bedside today. Patient complains of pruritus and rash in chest and upper extremities, with onset coinciding with administration of IV Dilaudid for pain. IV Dilaudid discontinued. GI on board for G-tube removal surgery, scheduled for today. Objective vital signs Vital Sign Date Time Temp Pulse Resp B/P (MAP) Pulse Ox O2 Delivery O2 Flow Rate FiO2 06/17/25 12:20 96 Room Air 0.0 06/17/25 12:20 92 16 06/17/25 12:20 21 06/17/25 09:00 98.9 116/73 (87) 98.9 Total Intake and Output 06/16/25 06/16/25 06/17/25 15:00 23:00 07:00 Intake Total 400 ml 920 ml Balance 400 ml 920 ml medications Current Medications Medications Dose Ordered Sig/Yariel Route Start Time Stop Time Status Last Admin Dose Admin Sodium Chloride 10 ml Q8HR IV 06/15/25 22:00 06/17/25 05:51 10 ML Ondansetron HCl 4 mg Q4HP PRN IV 06/15/25 21:15 06/16/25 09:34 4 MG Docusate Sodium 100 mg BIDPRN PRN PO 06/15/25 21:15 06/15/25 23:37 100 MG Acetaminophen 650 mg Q6HP PRN PO 06/15/25 21:15 06/16/25 09:35 650 MG Ipratropium [place] 0.5 mg Q6HPRN PRN NEB 06/15/25 21:15 06/17/25 12:20 0.5 MG Albuterol 2.5 mg Q6HR NEB 06/16/25 00:00 06/17/25 12:20 2.5 MG Oseltamivir Phosphate 75 mg Q12HR PO 06/16/25 22:00 06/21/25 21:59 06/17/25 09:39 75 MG Pantoprazole Sodium 40 mg DAILY@0600 PO 06/17/25 06:00 Diphenhydramine HCl 25 mg Q4HP PRN IV 06/16/25 15:45 06/17/25 04:21 25 MG Polyethylene Glycol 17 gm DAILYPRN PRN PO 06/16/25 16:45 Sennosides 8.6 mg HS PO 06/16/25 22:00 06/16/25 22:12 8.6 MG Examination General: Patient alert and oriented in person, place and time. Patient following commands. HEENT: Normocephalic, atraumatic, moist mucous membranes Respiratory/pulmonary: Clear lungs bilaterally, vesicular murmurs present in almost all lung ford, no associated crackles or wheezes. Cardiovascular: Normal heart sounds S1 and S2 with no associated murmurs Abdomen: Mild generalized abdominal tenderness, without guarding or rigidity Extremities: There is no peripheral edema present at the lower extremities. Peripheral Pulses: 3+ Radial (R). 3+ Radial (L). 3+ Dorsalis pedis (R). 3+ Dorsalis pedis(L) Skin: Erythematous papular rash in chest in bilateral upper extremities, no pustules or break in skin present Neurological: Intact cranial nerves with no focal neurologic deficits laboratory and microbiology Laboratory Tests 06/17/25 04:45 Test 06/17/25 04:45 Range/Units Serum Glucose 82 74-106 mg/dL Problem List/Assessment/Plan Problem List/Assessment/Plan Intractable abdominal pain likely due to PEG tube KUB: Nonobstructive bowel gas pattern. Moderate stool burden. Abdomen/Pelvis CT: No acute abdominopelvic abnormality. Supportive management with Tylenol, Zofran, IV fluids GI on board, recommended removal of T-tube. Surgery scheduled for today. 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 Full code DISPOSITION: Med/surge This medical document was created using an electronic medical record system with [employer] direct computerized dictation system. Although this document has been carefully reviewed, there may still be some phonetic and typographical errors. These areas are purely typographical due to imperfections of the software programs, and do not reflect any compromise in the patient's medical care. Patient's status and plan discussed with the patient. Case discussed with Dr. Reynolds Plan discussed with: Patient, Other (Nurses) My Orders My Orders Orders - DEANA WADE RESIDENT Procedure Category Date Status Time Order Routine Aptt LUCIEN 06/17/25 In Process 02:48 Chest Portable XY 06/17/25 Resulted 02:48 Complete Blood Count LAB 06/18/25 Verified 04:00 Comprehensive LAB 06/18/25 Verified Metabolic Panel 04:00 Date of Service: Jun 17, 2025 Billing Provider: SHIELA REYNOLDS MD Common Visit Codes: [id number] INP/OBS CARE(HIGH) DEANA WADE RESIDENT Jun 17, 2025 13:23
[2025-06-17] MEDS ORDERED: LIDOCAINE VISCOUS 2% 15ML UD ONE (13:55)
[2025-06-17] MEDS ORDERED: MIDAZOLAM HCL 2MG/2ML 2ml VIAL (1mg/ml) ONE (14:15)
[2025-06-17] MEDS ORDERED: fentaNYL CITRATE 100 MCG/2 ML VL ONE (14:15)
[2025-06-17] MEDS ORDERED: PROPOFOL 10 MG/ML 20 ML IV ONE (14:20)
--- NOTE | 2025-06-17 14:45 | DVHOP2 ---
Operative Report DATE OF OPERATION: 06/17/25 PROCEDURE: Upper Endoscopy with removal of foreign body that is a PEG tube PREOPERATIVE INDICATION: The patient is a 24 -year-old female undergoing endoscopy for removal of PEG tube, prior history of status asthmaticus requiring intubation and PEG tube on a prior admission POSTOPERATIVE DIAGNOSES: 1. Patient had a 2 cm sliding-type hiatal hernia minimal gastritis otherwise normal examination up to the 2nd and 3rd part of the duodenum 2. Previously placed phalange of the gastrostomy tube was noted in the distal body of the stomach, this was retrieved after cutting externally and removing the phalange with a snare as per standard protocol 3. Repeat endoscopy confirmed complete removal and there was no mucosal injury or bleeding PROCEDURE PERFORMED BY: Dulce Koenig GI NURSE: Raulito SCOPE: Olympus videoendoscope. ASA CLASS: 2 PREOPERATIVE MEDICATIONS: Dr. Madhav Richardson PROCEDURE IN DETAIL: After obtaining an informed consent, the patient was placed on left lateral decubitus position. The patient was then sedated with the above medications. A bite block was placed between her teeth. The endoscope was then passed through the oropharynx, into the esophagus, and through the stomach and pylorus up to the second and third part of the duodenum. The endoscope was then withdrawn. Phalange from the gastrostomy tube was noted in the distal body of the stomach. This was grabbed using a polypectomy snare The gastrostomy tube was cut externally and the phalange was withdrawn per orally with no resistance Repeat endoscopy confirmed complete removal and there was no mucosal injury or bleeding The patient tolerated the procedure well without difficulty. COMPLICATIONS : None SPECIMENS: None DISPOSITION: Transfer back to the floor Stable PLAN: 1. Await for biopsy result 2. Will place pt on Protonix 40 mg IV daily 3. Start with clear liquid diet advance as tolerated 4. Keep dry dressing over gastrostomy tube site DULCE KOENIG MD Jun 17, 2025 14:45
[2025-06-17] MEDS: ceFAZolin 1GM/50ML 50 ML IV ONE (15:31)
[2025-06-17] MEDS: PANTOPRAZOLE 40 MG/10 ML VIAL INJ IV ONE (15:32)
[2025-06-18] VITALS (11 sets, daily range): BP systolic 107–169; BP diastolic 64–90; PULSE 59–102; RESP 16–20; TEMP 97.4–98.5; O2SAT 92–100
[2025-06-18 07:57] LABS: Hematocrit 32.1 % (36.0-46.0); Hemoglobin 10.4 g/dL (12.2-16.2); Mean Corpuscular Hemoglobin 24.6 pg (28.0-32.0); Mean Corpuscular Volume 76.0 fL (80.0-100.0)
[2025-06-18 08:24] LABS: Albumin 4.0 g/dL (3.2-4.8); Alkaline Phosphatase 95 U/L (46-116); Anion Gap 12 (5-15); Calcium 9.2 mg/dL (8.7-10.4); Carbon Dioxide 26 mmol/L (20-31); Chloride 104 mmol/L (98-107); Glucose 87 mg/dL (74-106); Sodium 142 mmol/L (136-145); Total Protein 6.8 g/dL (5.7-8.2)
[2025-06-18 08:25] LABS: Bilirubin, Total 0.4 mg/dL (0.2-1.0)
[2025-06-18 08:29] LABS: Alanine Aminotransferase 107 U/L (7-40); BUN/Creatinine Ratio 9.4 (10.0-20.0); Blood Urea Nitrogen < 5 mg/dL (9-23); Potassium 3.4 mmol/L (3.5-5.1)
[2025-06-18 08:42] LABS: Total Cells Counted 100.0 (100)
[2025-06-18] MEDS: POTASSIUM CHLORIDE 20 MEQ, LIDOCAINE 1% (LOCAL ANESTH.) 2 ML in SODIUM CHL 0.9% 100 ML IV ONE (09:45)
[2025-06-18] MEDS: FERROUS SULFATE 325mg EC TAB PO SCH (10:15)
[2025-06-18] MEDS: POTASSIUM CHL 20 Meq TABLET PO ONE (11:48)
[2025-06-18] MEDS: IRON SUCROSE COMPLEX 110 ML IV SCH (11:57)
[2025-06-18] MEDS ORDERED: PANT40T PO (15:03)
[2025-06-18] MEDS ORDERED: FER325T PO (15:03)
--- NOTE | 2025-06-18 15:31 | DVHDSRES ---
Discharge Summary Date of Admission Resident Creating Document: DEANA WADE RESIDENT Jun 15, 2025 at 21:08 Date of Discharge: Jun 18, 2025 Labs/Diagnostic Data: Laboratory Results Test 06/18/25 06:53 06/17/25 12:10 06/17/25 04:45 06/16/25 09:32 White Blood Count 7.0 10^3/uL (4.4-10.8) Red Blood Count 4.22 10^6/uL (4.0-5.20) Hemoglobin 10.4 g/dL (12.2-16.2) Hematocrit 32.1 % (36.0-46.0) Mean Corpuscular Volume 76.0 fL (80.0-100.0) Mean Corpuscular Hemoglobin 24.6 pg (28.0-32.0) Mean Corpuscular Hemoglobin Concent 32.3 g/dL (32.0-36.0) Red Cell Distribution Width 15.9 % (11.8-14.3) Platelet Count 238 10^3/uL (140-450) Mean Platelet Volume 10.9 fL (6.9-10.8) Neutrophils (%) (Auto) % (37.0-80.0) Lymphocytes (%) (Auto) % (10.0-50.0) Monocytes (%) (Auto) % (0.0-12.0) Eosinophils (%) (Auto) % (0.0-7.0) Basophils (%) (Auto) % (0.0-2.0) Neutrophils # (Auto) 10 ^3/uL (1.6-8.6) Lymphocytes # (Auto) 10 ^3/uL (0.4-5.4) Monocytes # (Auto) 10 ^3/uL (0-1.3) Differential Total Cells Counted 100.0 (100) Neutrophils % (Manual) 32 (37.0-80.0) Band Neutrophils % (Manual) 1 Lymphocytes % (Manual) 30 (10.0-50.0) Monocytes % (Manual) 4 (0-12) Eosinophils % (Manual) 33 (0-7) Basophils % (Manual) 0 (0.0-2.0) Metamyelocytes % (manual) 0 Myelocytes % (Manual) 0 Promyelocytes % (Manual) 0 Blast Cells % (Manual) 0 Reactive Lymphocytes 0 Platelet Estimate Adequate Sodium Level 142 mmol/L (136-145) Potassium Level 3.4 mmol/L (3.5-5.1) Chloride Level 104 mmol/L (98-107) Carbon Dioxide Level 26 mmol/L (20-31) Anion Gap 12 (5-15) Blood Urea Nitrogen < 5 mg/dL (9-23) Creatinine 0.53 mg/dL (0.550-1.02) Glomerular Filtration Rate Calc 134 mL/min (>90) BUN/Creatinine Ratio 9.4 (10.0-20.0) Serum Glucose 87 mg/dL (74-106) Calcium Level 9.2 mg/dL (8.7-10.4) Total Bilirubin 0.4 mg/dL (0.2-1.0) Aspartate Amino Transferase (AST) 50 U/L (13-40) Alanine Aminotransferase (ALT) 107 U/L (7-40) Alkaline Phosphatase 95 U/L (46-116) Total Protein 6.8 g/dL (5.7-8.2) Albumin 4.0 g/dL (3.2-4.8) Iron Level 33 ug/dL (50-170) Total Iron Binding Capacity 369 ug/dL (250-425) Percent Iron Saturation 8.9 % (15-50) Ferritin 17.0 ng/mL (10-291) Hypochromasia (manual) Slight Microcytosis Slight Beta HCG, Quantitative 0.4 mIU/mL (1.5-4.2) Influenza Type A Antigen Negative (Negative) Influenza Type B Antigen Positive (Negative) SARS-CoV-2 Antigen (Rapid) Negative (NEGATIVE) Test 06/16/25 03:36 06/16/25 01:00 06/15/25 10:40 Eosinophils # (Auto) 1.0 10 ^3/uL (0-0.8) Basophils # (Auto) 0.1 10 ^3/uL (0-0.2) Nucleated Red Blood Cells 0.0 % Hepatitis A IgM Antibody Negative Hepatitis B Surface Antigen Negative (Negative) Hepatitis B Core IgM Antibody Negative (Negative) Hepatitis C Antibody Negative (Negative) Urine Color Yellow (Yellow) Urine Clarity Clear (Clear) Urine pH 6.5 (5.0-9.0) Urine Specific [place] > 1.050 (1.001-1.035) Urine Protein 1+ (Negative) Urine Ketones Negative (Negative) Urine Blood 1+ /uL (Negative) Urine Nitrite Negative (Negative) Urine Bilirubin Negative (Negative) Urine Urobilinogen Normal mg/dL (Negative) Urine Leukocyte Esterase Negative /uL (Negative) Urine RBC 4 /hpf (0 - 4) Urine Microscopic WBC 4 /HPF (0-5) Urine Squamous Epithelial Cells Few /hpf (<5) Urine Bacteria None seen /hpf (None Seen) Urine Glucose Normal mg/dL (Normal) Urine Opiates Screen Neg (NEGATIVE) Urine Fentanyl Screen Neg (NEGATIVE) Urine Barbiturates Screen Neg (NEGATIVE) Urine Phencyclidine Screen Neg (NEGATIVE) Urine Amphetamines Screen Neg (NEGATIVE) Urine Benzodiazepines Screen Neg (NEGATIVE) Urine Cocaine Screen Neg (NEGATIVE) Urine Cannabinoids Screen Neg (NEGATIVE) Direct Bilirubin < 0.1 mg/dL (<0.3) Thyroid Stimulating Hormone (TSH) 2.93 uIU/mL (0.55-4.78) Other Laboratory Tests 06/18/25 06:53 Brief Hx & Hospital Course: This is a 24-year-old male with past medical history of asthma, presented to [facility] ED with complaint of severe abdominal pain and requesting G-tube removed. Pain was described as stabbing, 8/10, aggravated with eating food, no relieving factors, associated with nausea. She reported that the G- tube was placed approximately 2 months ago at [place] during a medically- induced coma for intubation due to asthma complications. Over the past few days, she had been experiencing worsening of abdominal pain, itchiness around the G- tube site, nausea, and vomiting. She stated she was able to eat orally. Patient denied diarrhea, drainage, bleeding, or fever. Initial labs showed microcytic anemia, BUN 6, creatinine 0.51, AST 71, and ALT 158. Abdominal X-ray showed nonobstructive bowel gas pattern moderate stool burden. CT scan showed no acute abnormality. With the hospitalist she was treated with IV fluids, pain killers. Gastroenterology was consulted. Upper endoscopy with PEG tube removal was done. 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 Follow up with Gastroenterology if needed. Medications: Protonix 40 mg 1 tab orally for 30 days Ferrous sulfate 375 mg 1 tab orally for 30 days Scheduled Ferrous Sulfate (Ferrous Sulfate), 325 MG PO DAILY Fluticasone-Salmeterol (Advair Diskus 500/50), 1 PUFF INH BID, (Reported) Pantoprazole Sodium Sesquihydr (Pantoprazole Sodium), 40 MG PO DAILY@0600 Miscellaneous Medications Dupilumab (Dupixent), 300 MG SC, (Reported) Loratadine (Claritin), 1 TAB PO, (Reported) Montelukast Sodium (Montelukast Sodium), 1 TAB PO, (Reported) Discharge Statement: "Patient was advised to return to the ER or call 911 if any headaches, dizziness, shortness of breath, chest pain, abdominal pain, bleeding, fevers, or worsening of medical condition. Patient was counseled about treatment plan, medications, possible side effects, patientverbalized understanding. All questions were answered to the best of my ability. 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
[2025-06-18] MEDS ORDERED: fentaNYL CITRATE 100 MCG/2 ML VL IV ONE (16:59)
--- NOTE | 2025-06-18 23:24 | DVHPN2 ---
Progress Note - Dictate Date Seen: Jun 18, 2025 (Late entry Time of visit was 10:00 a.m.) Medical Necessity Reason Pt with a Central, PICC or Fol: Yes (G tube) Subjective No new complaints, patient out of bed to chair Patient is tolerating diet G-tube site had minimal discharge and was nontender vital signs Vital Sign Date Time Temp Pulse Resp B/P (MAP) Pulse Ox O2 Delivery O2 Flow Rate FiO2 06/18/25 19:09 97 Room Air 06/18/25 19:09 0 21 06/18/25 17:00 98.5 98 17 120/83 (95) 98.5 Total Intake and Output 06/17/25 06/17/25 06/18/25 14:59 22:59 06:59 Intake Total 50 ml 980 ml 100 ml Balance 50 ml 980 ml 100 ml objective General: Patient alert and oriented in person, place and time. Patient following commands. HEENT: Normocephalic, atraumatic, moist mucous membranes Respiratory/pulmonary: Clear lungs bilaterally, vesicular murmurs present in almost all lung ford, no associated crackles or wheezes. Cardiovascular: Normal heart sounds S1 and S2 with no associated murmurs Abdomen: NT ,Gastrostomy site minimal discharge, without guarding or rigidity Extremities: There is no peripheral edema present at the lower extremities. Peripheral Pulses: 3+ Radial (R). 3+ Radial (L). 3+ Dorsalis pedis (R). 3+ Dorsalis pedis(L) Skin: Erythematous papular rash in chest in bilateral upper extremities, no pustules or break in skin present Neurological: Intact cranial nerves with no focal neurologic deficits laboratory and microbiology Laboratory Tests 06/18/25 06:53 Test 06/18/25 06:53 Range/Units Serum Glucose 87 74-106 mg/dL Problems(with codes): (1) PEG tube malfunction (2) Pain around PEG tube site Prognosis Plan Postop day 1. S/P endoscopy with removal of PEG tube Patient was given one dose of IV Ancef yesterday and we will give him one dose of Rocephin today Local G-tube site care was discussed with nurse and the patient Patient may shower and Discharge planning is in progress Plan discussed with: Patient, Other (Nurse and Dr Reynolds) DULCE BUI MD Jun 18, 2025 23:24
== END 2025-06-18 17:00 | disposition home or self-care (01) | DRG 813 ==
LOC: ER 09:38 → OVERFLOW 21:08 → EAST 06-16 16:24
PROVIDERS: ADMIT Internal Medicine Geriatric Medicine; ATTEND Internal Medicine Geriatric Medicine
PROC: 0DC68ZZ Extirpation of Matter from Stomach, Via Natural or Artificial Opening Endoscopic (ICD-10-PCS; principal; 2025-06-17 14:08)
DX: T85.848A Pain due to other internal prosthetic devices, implants and grafts, initial encounter (principal); N17.0 Acute kidney failure with tubular necrosis; J10.00 Influenza due to other identified influenza virus with unspecified type of pneumonia; J45.909 Unspecified asthma, uncomplicated; K76.0 Fatty (change of) liver, not elsewhere classified; Z20.822 Contact with and (suspected) exposure to COVID-19; Y84.8 Other medical procedures as the cause of abnormal reaction of the patient, or of later complication, without mention of misadventure at the time of the procedure; K44.9 Diaphragmatic hernia without obstruction or gangrene; K29.70 Gastritis, unspecified, without bleeding; Z88.1 Allergy status to other antibiotic agents; Z82.5 Family history of asthma and other chronic lower respiratory diseases; Z83.3 Family history of diabetes mellitus; Z91.018 Allergy to other foods; Y92.89 Other specified places as the place of occurrence of the external cause; Z79.899 Other long term (current) drug therapy
CPT/HCPCS: 36415; 43247; 71045; 74018; 74177; 76705; 80048; 80053; 80074; 80076; 80307; 81001; 82728; 83540; 83550; 84132; 84443; 84702; 85007; 85025; 85027; 86850; 86900; 86901; 87081; 87426; 87804; 94640; 96361; 96374; 96375; G0378; J1100; J1756; J2003; J2250; J2405; J2470; J2704; J3480